=== PATIENT | male | born 1965 | race Caucasian/White ===

== ENCOUNTER 2018-03-31 22:54 | Emergency (ER) | payer BC ==
--- NOTE | 2018-03-31 23:23 | ED ---
GI/ HPI - HPI Summary HPI Summary: This patient is a 52 year old M presenting to [facility] accompanied by family with a chief complaint of rectal pain began on 03/29/2018. The patient rates the pain 10/10 in severity. Symptoms aggravated by sitting and bowel movements. Symptoms alleviated by Ibuprofen. Patient reports rectal bleeding, rectal swelling, and nausea. Patient denies vomiting and diarrhea. Patient reports he had blood clots removed from his rectum on 03/29/2018. Patient states the pain has worsened since then. - History of Current Complaint Chief Complaint: EDRectalPain Time Seen by Provider: 03/31/18 23:17 Stated Complaint: RECTAL PAIN/BLEEDING Hx Obtained From: Patient Onset/Duration: Started Days Ago, Atraumatic, Still Present Timing: Constant Severity: Severe Current Severity: Severe Pain Intensity: 10 Location of Pain: None Associated Signs and Symptoms: Positive: Other: - Positive rectal bleeding, rectal swelling, and nausea. Negative vomiting and diarrhea Aggravating Factor(s): Bowel Movement, Sitting Alleviating Factor(s): OTC Analgesics - Allergy/Home Medications Allergies/Adverse Reactions: Allergies Allergy/AdvReac Type Severity Reaction Status Date / Time francois Allergy Swelling Verified 03/31/18 23:28 PMH/Surg Hx/FS Hx/Imm Hx Previously Healthy: No GI History: Reports: Other GI Disorders - Hemorrhoids Opthamlomology History: Denies: Hx Legally Blind EENT History: Denies: Hx Deafness Infectious Disease History: No Infectious Disease History: Denies: Traveled Outside the [place] in Last 30 Days - Family History Known Family History: Positive: Cardiac Disease Negative: Diabetes - Social History Occupation: Employed Full-time Lives: With Family Alcohol Use: Occasionally Hx Substance Use: No Substance Use Type: Reports: None Hx Tobacco Use: No Smoking Status (MU): Never Smoked Tobacco Review of Systems Negative: Fever Positive: Nausea, Other - Positive rectal swelling, rectal pain, and rectal bleeding. Negative: Vomiting, Diarrhea All Other Systems Reviewed And Are Negative: Yes Physical Exam - Summary Physical Exam Summary: Appearance: Well-appearing, Well-nourished, lying in bed comfortable Skin: Warm, dry, no obvious rash Eyes: sclera anicteric, no conjunctival pallor ENT: mucous membranes moist Neck: deferred Respiratory: No signs of respiratory distress Cardiovascular: Appears well perfused, pulses are nml Abdomen: deferred Rectal Exam: Multiple grape sized hemorrhoids which appear thrombosed on the left side. On the right side there are hemorrhoids, but they do not appear thrombosed. Musculoskeletal: Moving all 4 extremities without obvious discomfort Neurological: Awake and alert, mentation is normal, speech is fluent and appropriate Psychiatric: affect is normal, does not appear anxious or depressed Triage Information Reviewed: Yes Vital Signs On Initial Exam: Initial Vitals Temp Pulse Resp BP Pulse Ox 98.2 F 63 18 118/72 95 03/31/18 22:56 03/31/18 22:56 03/31/18 22:56 03/31/18 22:56 03/31/18 22:56 Vital Signs Reviewed: Yes Procedures - Incision and Drainage Hemorrhoids Site: Rectal Hemorrhoids Anesthesia: Local - Marcaine, Xylocaine, and epinephrine Instrument(s): Scalpel - 11 blade. Drainage with expression of clot Left Anesthesia: Local Instrument(s): Scalpel - 3 thrombosed hemorrhoids were incised and any clot was expressed out. Bleeding was controlled with gauze. Diagnostics - Vital Signs Vital Signs Temp Pulse Resp BP Pulse Ox 03/31/18 22:56 98.2 F 63 18 118/72 95 - Laboratory Lab Statement: Any lab studies that have been ordered have been reviewed, and results considered in the medical decision making process. GIGU Course/Dx - Course Course Of Treatment: This patient is a 52 year old M presenting to [facility] accompanied by family with a chief complaint of rectal pain began on 2017. The patient rates the pain 10/10 in severity. Patient reports he had blood clots removed from his rectum on 03/29/2018. Physical Exam Findings: Multiple grape sized hemorrhoids which appear thrombosed on the left side. On the right side there are hemorrhoids, but they do not appear thrombosed. The thrombosed hemorrhoids were incised and drained. Patient will be discharged with prescription for oxycodone and with follow up from PCP. The patient is agreeable with this plan. - Diagnoses Provider Diagnoses: Hemorrhoids Discharge - Sign-Out/Discharge Documenting (check all that apply): Patient Departure - Discharge home - Discharge Plan Condition: Stable Disposition: HOME Prescriptions: Oxycodone TAB(NF) [Oxycodone HCl 10 MG] 10 mg PO Q6H PRN 1 Days #6 tab MDD 4 tabs PRN Reason: Pain Patient Education Materials: Hemorrhoids (ED) Referrals: Chandra Conde MD [Medical Doctor] - - Billing Disposition and Condition Condition: STABLE Disposition: Home - Attestation Statements Document Initiated by Scribe: Yes Documenting Scribe: Angle Vernon Provider For Whom Scribe is Documenting (Include Credential): Dr. Joshua Galo MD Scribe Attestation: Angle Chaney scribed for Dr. Joshua Galo MD on 04/01/18 at 0248. Scribe Documentation Reviewed: Yes Provider Attestation: The documentation as recorded by the Angle cervantes accurately reflects the service I personally performed and the decisions made by me, Dr. Joshua Galo MD
[2018-03-31] MEDS ORDERED: Bupivacaine 0.5% W/EPI SDV* 30 ML VIAL ONE (23:26)
--- OUTSIDE RECORDS SUMMARY | 2018-03-31 23:51 | XMS REPORT ---
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 Active Onset: 02/18/2015 Removal of suture Serafin Jennings M.D. Active Social History Type Date Description Comments Smoking Patient has never smoked Allergies, Adverse Reactions, Alerts Date Description Reaction Status Severity Comments 11/30/2011 NKDA active Medications Medication Date Status Form Strength Qnty SIG Indications Ordering Provider Anucort-HC Active Suppository 25mg 12unit Use one K64.5 Angle CNeha 018 s per David rectum [employer] SAL[employer]IST twice daily as needed for pain No Active Hx Unknown Medications 016 - 018 Doxycycline Hx Capsules 100mg 20caps 1 by J06.9 Keri Hyclate 016 - mouth [place], twice a Afnp-C 016 day No Active Hx Unknown Medications 014 - 016 Anusol-HC Hx Cream 2.5% 1units apply Serafin Bell 013 - bid Dick Hayder 013 No Active Hx Unknown Medications 012 - 013 Medications Administered in Office Medication Date Status Form Strength Qnty SIG Indications Ordering Provider TB Intradermal Administered Injection Lidia Test 017 EBENEZER Wang TB Intradermal Administered Injection Parul Test 017 EBENEZER Echeverria Immunizations CPT Code Status Date Vaccine Lot # [id number] Given 12/12/2011 Tdap Tetanus, W Pertussis [id number] Given 03/26/2011 DO Not Use Split Influenza Virus Vaccine [id number] Given 03/26/2011 DO Not Use Split Influenza Virus Vaccine [id number] Vital Signs Date Vital Result Comment 03/28/2018 BP Systolic 110 mmHg BP Diastolic 70 mmHg Heart Rate 60 /min Respiratory Rate 16 /min Height 67.5 inches 5'7.50" Weight 183.00 lb BMI (Body Mass Index) 28.2 kg/m2 05/01/2017 BP Systolic 100 mmHg BP Diastolic 68 mmHg Heart Rate 60 /min Body Temperature 96.8 F Height 67.5 inches 5'7.50" Weight 181.00 lb BMI (Body Mass Index) 27.9 kg/m2 04/29/2016 BP Systolic 110 mmHg BP Diastolic 74 mmHg Heart Rate 60 /min Body Temperature 97.9 F Height 67.5 inches 5'7.50" Weight 182.00 lb BMI (Body Mass Index) 28.1 kg/m2 01/14/2016 BP Systolic 112 mmHg BP Diastolic 78 mmHg Heart Rate 80 /min Body Temperature 97.9 F Height 67.5 inches 5'7.50" Weight 176.00 lb BMI (Body Mass Index) 27.2 kg/m2 02/18/2015 BP Systolic 122 mmHg BP Diastolic 64 mmHg Heart Rate 58 /min Body Temperature 97.1 F Respiratory Rate 18 /min Height 67.5 inches 5'7.50" Weight 176.00 lb BMI (Body Mass Index) 27.2 kg/m2 02/11/2015 BP Systolic 102 mmHg BP Diastolic 62 mmHg Heart Rate 56 /min Body Temperature 97.1 F Height 67.5 inches 5'7.50" Weight 181.00 lb BMI (Body Mass Index) 27.9 kg/m2 01/15/2014 BP Systolic 94 mmHg BP Diastolic 70 mmHg Heart Rate 60 /min Body Temperature 96.7 F Respiratory Rate 14 /min Height 67.75 inches 5'7.75" Weight 181.00 lb BMI (Body Mass Index) 27.7 kg/m2 Right Visual Acuity Distance 20/20 uncorrected Left Visual Acuity Distance 20/20 uncorrected 01/11/2013 BP Systolic 112 mmHg BP Diastolic 82 mmHg Heart Rate 56 /min Body Temperature 96.7 F Respiratory Rate 15 /min Height 67.75 inches 5'7.75" Weight 176.50 lb BMI (Body Mass Index) 27.0 kg/m2 09/19/2012 BP Systolic 122 mmHg BP Diastolic 70 mmHg Heart Rate 64 /min Body Temperature 97.1 F Height 67.25 inches 5'7.25" Weight 177.00 lb BMI (Body Mass Index) 27.5 kg/m2 12/12/2011 BP Systolic 96 mmHg BP Diastolic 62 mmHg Heart Rate 56 /min Body Temperature 97.4 F Respiratory Rate 14 /min Height 67.25 inches 5'7.25" measured Weight 172.00 lb BMI (Body Mass Index) 26.7 kg/m2 Right Visual Acuity Distance 20/20 Left Visual Acuity Distance 20/20 11/30/2011 BP Systolic 96 mmHg BP Diastolic 62 mmHg Heart Rate 56 /min Body Temperature 96.8 F Height 67.25 inches 5'7.25" measured Weight 171.00 lb BMI (Body Mass Index) 26.6 kg/m2 Results Test Date Test Result H/L Range Note Laboratory test finding 05/01/2017 TSH 1.28 mIU/L 0.50-6.00 PSA 0.3 ng/mL 0.0-4.0 Free T4 0.85 ng/dL 0.75-1.54 Complete Blood Count 05/01/2017 WBC 5.0 x10^3/UL 3.6-9.6 RBC 4.52 x10^6/UL 3.90-5.70 HGB 14.0 g/dL 12.1-17.2 HCT 42 % 36-50 MCV 92.0 fL 82.2-97.4 MCH 30.9 pg 27.6-33.3 MCHC 33.7 g/dL 33.0-35.5 RDW 13.4 % 11.6-13.7 PLT 217 x10^3/UL 150-400 MPV 7.5 fL 7.4-10.4 Gran # 2.9 x10^3/UL 1.5-7.2 Lymph# 1.9 x10^3/UL 0.7-4.9 [place]# 0.2 x10^3/UL 0.1-0.9 Gran % 57.1 % 42.2-75.2 Lymph % 38.3 % 20.5-51.1 [place]% 4.6 % 1.7-9.3 Comprehensive Metabolic Prof 05/01/2017 Sodium 148 mEq/L 134-149 Potassium 4.9 mEq/L 3.6-5.5 Chloride 110 mEq/L 94-112 Carbon Dioxide 25 mEq/L 21-32 Glucose 103 mg/dL 70-105 BUN 16 mg/dL 6-26 Creatinine 1.0 mg/dL 0.6-1.4 BUN/Creat Ratio 16.0 CALC 8.0-36.0 Calcium 9.5 mg/dL 8.6-10.2 Total Protein 6.7 g/dL 6.4-8.3 Albumin 4.3 g/dL 3.8-5.5 Globulin 2.4 g/dL 2.0-4.8 A/G Ratio 1.8 CALC 0.6-2.3 Alk. Phosphatase 69 U/L 22-95 Alt (SGPT) 19 U/L 7-35 Ast (Sgot) 15 U/L 5-34 Total Bilirubin 0.3 mg/dL 0.2-1.3 GFR Non- >60 ml/min/1.73m^ >=60 GFR >60 ml/min/1.73m^ >=60 Lipid Profile 05/01/2017 Cholesterol 198 mg/dL 120-200 Triglycerides 57 mg/dL 30-200 HDL Cholesterol 50 mg/dL 30-70 LDL (Calculated) 137 CALC High 0-129 VLDL Cholesterol 11 mg/dL 0-50 HDL Risk Factor 4.0 CALC 0.0-4.4 Measles/Mumps/Rubella 08/18/2016 Rubella 1.28 index Immune >0.99 1, 2 Immunity Antibodies, IgG Rubeola Ab, IgG 172.0 AU/mL Immune >29.9 1, 3 Mumps Abs, IgG 80.9 AU/mL Immune >10.9 1, 4 Complete Blood Count 04/29/2016 WBC 5.1 x10^3/UL 3.6-9.6 RBC 4.93 x10^6/UL 3.90-5.70 HGB 15.1 g/dL 12.1-17.2 HCT 45 % 36-50 MCV 90.0 fL 82.2-97.4 MCH 30.6 pg 27.6-33.3 MCHC 33.8 g/dL 33.0-35.5 RDW 13.8 % High 11.6-13.7 PLT 200 x10^3/UL 150-400 MPV 7.3 fL Low 7.4-10.4 Gran # 2.9 x10^3/UL 1.5-7.2 Lymph# 2.0 x10^3/UL 0.7-4.9 [place]# 0.2 x10^3/UL 0.1-0.9 Gran % 56.0 % 42.2-75.2 Lymph % 39.6 % 20.5-51.1 [place]% 4.4 % 1.7-9.3 Comprehensive Metabolic Prof 04/29/2016 Sodium 141 mEq/L 134-149 Potassium 4.3 mEq/L 3.6-5.5 Chloride 101 mEq/L 94-112 Carbon Dioxide 27 mEq/L 21-32 Glucose 96 mg/dL 70-105 BUN 19 mg/dL 6-26 Creatinine 0.9 mg/dL 0.6-1.4 BUN/Creat Ratio 21.1 CALC 8.0-36.0 Calcium 9.0 mg/dL 8.6-10.2 Total Protein 6.6 g/dL 6.4-8.3 Albumin 4.3 g/dL 3.8-5.5 Globulin 2.3 g/dL 2.0-4.8 A/G Ratio 1.9 CALC 0.6-2.3 Alk. Phosphatase 64 U/L 22-95 Alt (SGPT) 19 U/L 7-35 Ast (Sgot) 19 U/L 5-34 Total Bilirubin 0.5 mg/dL 0.2-1.3 GFR Non- >60 ml/min/1.73m^ >=60 GFR >60 ml/min/1.73m^ >=60 Lipid Profile 04/29/2016 Cholesterol 231 mg/dL High 120-200 Triglycerides 136 mg/dL 30-200 HDL Cholesterol 46 mg/dL 30-70 LDL (Calculated) 158 CALC High 0-129 VLDL Cholesterol 27 mg/dL 0-50 HDL Risk Factor 5.0 CALC High 0.0-4.4 Comprehensive Metabolic Prof 02/18/2015 Sodium 144 mEq/L 134-149 Potassium 4.6 mEq/L 3.6-5.5 Chloride 106 mEq/L 94-112 Carbon Dioxide 27 mEq/L 21-32 Glucose 94 mg/dL 70-105 BUN 18 mg/dL 6-26 Creatinine 1.0 mg/dL 0.6-1.4 BUN/Creat Ratio 18.0 CALC 8.0-36.0 Calcium 8.8 mg/dL 8.6-10.2 Total Protein 6.8 g/dL 6.4-8.3 Albumin 4.1 g/dL 3.8-5.5 Globulin 2.7 g/dL 2.0-4.8 A/G Ratio 1.5 CALC 0.6-2.3 Alk. Phosphatase 57 U/L 22-95 Alt (SGPT) 21 U/L 7-35 Ast (Sgot) 18 U/L 5-34 Total Bilirubin 0.4 mg/dL 0.2-1.3 GFR Non- >60 ml/min/1.73m^ >=60 GFR >60 ml/min/1.73m^ >=60 Lyme Disease Ab, Quant, 02/18/2015 Lyme Disease AB Quant 1.14 index High 0.00-0.79 IgM Igm IgG P93 Ab. Absent IgG P66 Ab. Absent IgG P58 Ab. Absent IgG P45 Ab. Absent IgG P41 Ab. Present IgG P39 Ab. Absent IgG P30 Ab. Absent IgG P28 Ab. Absent IgG P23 Ab. Absent IgG P18 Ab. Absent Lyme IgG WB Interp. Negative 5 IgM P41 Ab. Absent IgM P39 Ab. Absent IgM P23 Ab. Absent Lyme IgM WB Interp. Negative 6 Lyme AB/Western Blot Reflex 02/18/2015 Lyme IgG/IgM Ab <0.91 ISR 0.00- 0.90 7 Complete Blood Count 02/18/2015 WBC 4.9 x10^3/UL 3.6-9.6 RBC 4.74 x10^6/UL 3.90-5.70 HGB 14.8 g/dL 12.1-17.2 HCT 44 % 36-50 MCV 92.0 fL 82.2-97.4 MCH 31.2 pg 27.6-33.3 MCHC 33.8 g/dL 33.0-35.5 RDW 12.8 % 11.6-13.7 PLT 219 x10^3/UL 150-400 MPV 7.3 fL Low 7.4-10.4 Gran # 2.7 x10^3/UL 1.5-7.2 Lymph# 2.0 x10^3/UL 0.7-4.9 [place]# 0.2 x10^3/UL 0.1-0.9 Gran % 52.7 % 42.2-75.2 Lymph % 42.0 % 20.5-51.1 [place]% 5.3 % 1.7-9.3 Lipid Profile 02/18/2015 Cholesterol 197 mg/dL 120-200 Triglycerides 99 mg/dL 30-200 HDL Cholesterol 41 mg/dL 30-70 LDL (Calculated) 136 CALC High 0-129 VLDL Cholesterol 20 mg/dL 0-50 HDL Risk Factor 4.8 CALC High 0.0-4.4 Ua - Non Micro (Fma) 02/11/2015 Appearance clear Color yellow Glucose, Urine (Fma/CMC/CTX) - Bilirubin - Ketones - SP Grav 1.015 Blood - PH 7.0 Protein - Urobil 0.2 Nitrite - Leukocytes (Fma/CMC/Centrex) - Complete Blood Count 01/15/2014 WBC 4.7 x10^3/UL 3.6-9.6 RBC 4.68 x10^6/UL 3.90-5.70 HGB 14.5 g/dL 12.1-17.2 HCT 44 % 36-50 MCV 93.0 fL 82.2-97.4 MCH 30.9 pg 27.6-33.3 MCHC 33.2 g/dL 33.0-35.5 RDW 12.0 % 11.6-13.7 PLT 189 x10^3/UL 150-400 MPV 7.5 fL 7.4-10.4 Gran # 2.7 x10^3/UL 1.5-7.2 Lymph# 1.8 x10^3/UL 0.7-4.9 [place]# 0.2 x10^3/UL 0.1-0.9 Gran % 54.9 % 42.2-75.2 Lymph % 40.2 % 20.5-51.1 [place]% 4.9 % 1.7-9.3 Comprehensive Metabolic Prof 01/15/2014 Sodium 142 mEq/L 134-149 Potassium 4.1 mEq/L 3.6-5.5 Chloride 103 mEq/L 94-112 Carbon Dioxide 26 mEq/L 21-32 Glucose 102 mg/dL 70-105 BUN 15 mg/dL 6-26 Creatinine 1.0 mg/dL 0.6-1.4 BUN/Creat Ratio 15.0 CALC 8.0-36.0 Calcium 8.8 mg/dL 8.6-10.2 Total Protein 7.3 g/dL 6.3-8.1 Albumin 4.4 g/dL 3.8-5.5 Globulin 2.9 g/dL 2.0-4.8 A/G Ratio 1.5 CALC 0.6-2.3 Alk. Phosphatase 53 U/L 22-95 Alt (SGPT) 24 U/L 7-35 Ast (Sgot) 21 U/L 5-34 Total Bilirubin 0.5 mg/dL 0.2-1.3 Lipid Profile 01/15/2014 Cholesterol 215 mg/dL High 120-200 Triglycerides 111 mg/dL 30-200 HDL Cholesterol 35 mg/dL 30-70 LDL (Calculated) 158 CALC High 0-129 VLDL Cholesterol 22 mg/dL 0-50 HDL Risk Factor 6.1 CALC High 0.0-4.4 Comprehensive Metabolic Prof 01/11/2013 Albumin 4.5 g/dL 3.8-5.5 Alk. Phos. 72 U/L 22-95 Alt (SGPT) 22 U/L 10-40 Ast (Sgot) 20 U/L 5-34 BUN 15 mg/dL 6-26 Calcium 9.0 mg/dL 8.6-10.2 Chloride 99 mEq/L 94-112 Creatinine 1.1 mg/dL 0.6-1.4 Carbon Dioxide 27 mEq/L 21-32 Glucose 100 mg/dL 70-105 Sodium 136 mEq/L 134-149 Total Bilirubin 0.3 mg/dL 0.2-1.3 Total Protein 7.2 g/dL 6.3-8.1 Potassium 4.2 mEq/L 3.6-5.5 Globulin 2.7 g/dL 2.0-4.8 A/G Ratio 1.7 Calc 0.6-2.3 BUN/Creat Ratio 13.2 Calc 8.0-36.0 Lipid Profile 01/11/2013 Cholesterol 198 mg/dL 120-200 HDL 39 mg/dL 30-70 Triglycerides 103 mg/dL 30-200 HDL Risk Factor 5.1 CALC High 0.0-4.4 LDL (Calculated) 139 CALC High 0-129 VLDL (Calculated) 21 mg/dL 0-50 Ua - Non Micro ([facility]) 01/11/2013 Appearance yellow Color clear Glucose, Urine (a/CMC/CTX) neg Bilirubin neg Ketones neg SP Grav 1.015 Blood neg PH 5.5 Protein neg Urobil 0.2 Nitrite neg Leukocytes (a/[facility]/Centrex) neg CBC Electronic ([facility]) 01/11/2013 WBC 4.6 3.6-9.6 RBC 4.62 3.90-5.70 Hemoglobin (a/CMC/CTX) 14.2 g/dL 12.1 - 17.2 Hematocrit (a/CMC/CTX) 42.0 % 36.1 - 50.3 Platelets 197 10^3/ul 150-400 Lymph% 46.5 20.5-51.1 Mixed% 4.0 Neutrophils % 49.5 Mean Corpuscular Vol 91 82.2-97.4 Mean Corpuscular Hemoglobin 30.7 27.6-33.3 Mean Corpuscular Hemo Concen 33.8 32.0-36.0 RDW 12.3 11.6-13.7 Mean Platelet Volume 7.2 6.5-11.0 Comprehensive Metabolic Prof 12/12/2011 Albumin 4.5 g/dL 3.8-5.5 Alk. Phos. 64 U/L 22-95 Alt (SGPT) 22 U/L 10-40 Ast (Sgot) 19 U/L 5-34 BUN 21 mg/dL 6-26 Calcium 8.6 mg/dL 8.6-10.2 Chloride 105 mEq/L 94-112 Creatinine 1.1 mg/dL 0.6-1.4 Carbon Dioxide 27 mEq/L 21-32 Glucose 98 mg/dL 70-105 Sodium 143 mEq/L 134-149 Total Bilirubin 0.3 mg/dL 0.2-1.3 Total Protein 6.6 g/dL 6.3-8.1 Potassium 4.3 mEq/L 3.6-5.5 Globulin 2.1 g/dL 2.0-4.8 A/G Ratio 2.1 Calc 0.6-2.2 BUN/Creat Ratio 18.7 Calc 8.0-36.0 Lipid Profile 12/12/2011 Cholesterol 191 mg/dL 120-200 HDL 37 mg/dL 30-70 Triglycerides 105 mg/dL 30-200 HDL Risk Factor 5.2 CALC High 0.0-4.0 LDL (Calculated) 133 CALC High 0-129 VLDL (Calculated) 21 mg/dL 0-50 Ua - Non Micro (a) 12/12/2011 Appearance CLEAR Color YELLOW Glucose, Urine (Fma/CMC/CTX) NEG Bilirubin NEG Ketones NEG SP Grav >=1.030 Blood NEG PH 5.5 Protein NEG Urobil 0.2 Nitrite NEG Leukocytes (a/[facility]) NEG CBC Electronic ([facility]) 12/12/2011 WBC 6.2 3.6-9.6 RBC 4.94 3.90-5.70 Hemoglobin (Fma/CMC/CTX) 14.9 g/dL 12.1 - 17.2 Hematocrit (a/CMC/CTX) 45.0 % 36.1 - 50.3 Platelets 165 10^3/ul 150-400 Lymph% 33.9 20.5-51.1 Mixed% 5.3 Neutrophils % 60.8 Mean Corpuscular Vol 91 82.2-97.4 Mean Corpuscular Hemoglobin 30.2 27.6-33.3 Mean Corpuscular Hemo Concen 33.2 32.0-36.0 RDW 11.3 Low 11.6-13.7 Mean Platelet Volume 8.1 6.5-11.0 1 1 sst 2 Non-immune <0.90 Equivocal 0.90 - 0.99 Immune >0.99 3 Negative <25.0 Equivocal 25.0 - 29.9 Positive >29.9 Presence of antibodies to Rubeola is presumptive evidence of immunity except when acute infection is suspected. 4 Negative <9.0 Equivocal 9.0 - 10.9 Positive >10.9 A positive result generally indicates past exposure to Mumps virus or previous vaccination. 5 Positive: 5 of the following Borrelia-specific bands: 18,23,28,30,39,41,45,58, 66, and 93. Negative: No bands or banding patterns which do not meet positive criteria. 6 Note: An equivocal or positive EIA result followed by a negative Western Blot result is considered NEGATIVE. An equivocal or positive EIA result followed by a positive Western Blot is considered POSITIVE by the CDC. Positive: 2 of the following bands: 23,39 or 41 Negative: No bands or banding patterns which do not meet positive criteria. Criteria for positivity are those recommended by CDC/ASTPHLD. p23=Osp C, a53=acrzfeese Note: Sera from individuals with the following may cross react in the Lyme Western Blot assays: other spirochetal diseases (periodontal disease, leptospirosis, relapsing fever, yaws, and pinta); connective autoimmune (Rheumatoid Arthritis and Systemic Lupus Erythematosus and also individuals with Antinuclear Antibody); other infections ([place] Spotted Fever; Je-Deshpande Virus, and Cytomegalovirus). 7 Negative <0.91 Equivocal 0.91 - 1.09 Positive >1.09 Procedures Date CPT Code Description Status 01/15/2014 92922 Vision Test- screening test of visual acuity, Completed quantitative, bila Encounters Type Date Location Provider CPT E/M Dx Office Visit 05/03/2017 10:00a Main Office Serafin Jennings M.D. 39165 Z11.1 Office Visit 05/01/2017 9:00a Main Office EBENEZER Wallis 98218 Z00.01 R10.11 Z11.1 Office Visit 08/20/2016 12:45p Main Office Serafin Jennings M.D. 47966 Z11.1 Office Visit 04/29/2016 10:20a Main Office Serafin Jennings M.D. 38928 Z00.00 Office Visit 01/14/2016 9:15a Main Office Jenn Powell 27173 J06.9 R05 Office Visit 02/18/2015 8:00a Main Office Serafin Jennings M.D. 43576 Z48.02 M25.50 Z00.00 S61.012A Office Visit 02/11/2015 3:20p Main Office Serafin Jennings M.D. 75388 V70.0 Office Visit 01/15/2014 8:10a Main Office Serafin Jennings M.D. 81025 V70.0 V72.0 V76.41 Office Visit 01/11/2013 10:20a Main Office Serafin Jennings M.D. 62530 V70.0 455.5 V76.41 Office Visit 09/19/2012 3:00p Main Office Serafin Jennings M.D. 20013 455.5 Office Visit 12/12/2011 8:20a Main Office Serafin Jennings M.D. 12310 V70.0 v06.5 Office Visit 11/30/2011 9:20a Main Office Serafin Jennings M.D. 09482 V70.3 V68.9 Plan of Care Future Appointment(s):05/16/2018 3:20 pm - Serafin Jennings M.D. at Main [facility]003/28/2018 - Angle Hernandez, NPK64.5 Perianal venous thrombosisNew Medication:Anucort-HC 25 mgComments:I think this will need surgical management. Please follow up with Dr. Seymour.AllComments:1. Patient has been queried about patient's goals/preferences and functional/lifestyle goals at relevant visits. If relevant, describe: Has been discussed, noted above2. Treatment goals as explainedto the patient: see above3. Are there barriers to meeting treatment goals? Yes If Yes, please describe: Barriers include possible insurance limits, disease process, and difficulty with lifestyle changes4. Self -Management goals as described to the patient: Yes, see above As always, we strongly encourage a healthy diet and making physical activity a part of your every day life. If you have questions about how or where to start, please contact the office.
--- OUTSIDE RECORDS SUMMARY | 2018-03-31 23:51 | XMS REPORT | Continuity of Care Document ---
:1965 External Reference #:[id number] Author Name Mone Lazo Care Team Providers Name Role Phone Serafin Jennings MD Primary Care Physician Unavailable Payers Type Date Identification Numbers Payment Provider Subscriber Policy Number: [id number] [employer] Skyler Short PayID: [id number] [address] [address] [place] [address] Advance Directives Description No Information Available Problems Description No Information Family History Description No Information Available Social History Type Date Description Comments Sex Unknown Tobacco Use Start: Unknown Patient has never smoked Smoking Status Reviewed: 03/29/18 Patient has never smoked Allergies, Adverse Reactions, Alerts Description No Known Drug Allergies Medications Medication Date Status Form Strength Qnty SIG Indications Ordering Provider Anucort-HC 0000 Active Suppository 25mg apply Unknown 00 daily after first bm Immunizations Description No Information Available Vital Signs Date Vital Result Comment 03/29/2018 10:49am Height 68 inches 5'8" Weight 182.00 lb Heart Rate 68 /min BP Systolic 117 mmHg BP Diastolic 78 mmHg Respiratory Rate 16 /min Body Temperature 97.0 F BMI (Body Mass Index) 27.7 kg/m2 Results Description No Information Available Procedures Date Code Description Status 03/29/2018 58364 Excision Thrombosed Hemorrhoid, External Completed Encounters Description No Information Available Plan of Treatment Future Appointment(s):05/21/2018 9:00 am - Chandra Conde MD, FACS at [facility]03/29/2018 - Chandra Conde MD, FACSK64.5 Perianal venous rbfvszpmaqG75.8 Other hemorrhoidsFollow up:6-8 weeks with
[2018-04-01] MEDS ORDERED: oxyCODONE TAB* 5 MG TAB PO ONE (00:25)
[2018-04-01 00:56] VITALS: BP 103/66
== END 2018-04-01 00:56 | disposition home or self-care (01) ==
LOC: ED 22:54
DX: K64.5 Perianal venous thrombosis (principal)
CPT/HCPCS: 46083; 99282; A9270-GY